=== PATIENT | male | born 1995 | race Caucasian/White ===

== ENCOUNTER 2018-01-31 19:29 | Emergency (ER) | payer OTHER ==
[~2018-01-31] VITALS: Ht 152.4 cm; Wt 90.4 kg
[2018-01-31 19:32] VITALS: BP 139/88
[2018-01-31] MEDS ORDERED: LIDOCAINE-MPF 1%, 5ML ONE (19:39)
[2018-01-31] MEDS ORDERED: DIPH,PERTUSS(ACELL),TET VAC/PF 0.5 ML IM-VACC ONE ×2 (19:39→20:00)
[2018-01-31] MEDS ORDERED: L.E.T SOLUTION TP ONE (19:42)
[2018-01-31] MEDS ORDERED: LIDOCAINE-MPF 1%, 5ML INFIL ONE (20:00)
== END 2018-01-31 20:50 | disposition home or self-care (01) ==
LOC: ED 20:40
DX: S01.112A Laceration without foreign body of left eyelid and periocular area, initial encounter (principal); X58.XXXA Exposure to other specified factors, initial encounter; Y93.89 Activity, other specified; Y92.89 Other specified places as the place of occurrence of the external cause; Y99.8 Other external cause status
CPT/HCPCS: 12052; 90471; 90715